=== PATIENT | male | born 1965 | race Caucasian/White ===

== ENCOUNTER → 2017-01-26 | Outpatient (CLI) | payer BC ==
--- NOTE | 2017-01-26 15:32 | XR ---
Left knee HISTORY: Left knee pain 3 views of the left knee No comparisons Bone mineralization, joint spaces and alignment are maintained. No evident joint effusion. IMPRESSION: No fracture or dislocation.
--- NOTE | 2017-01-26 15:34 | XR ---
Right foot HISTORY: Swelling, pain, R 52 3 views of the right foot Comparison prior exam 11/15/2015 There is no interval change. Arthropathy change present at the first metatarsophalangeal joint. Align ment and bone mineralization are normal. IMPRESSION: Stable findings. No significant interval change. No acute abnormalities evident.
== END | disposition home or self-care (01) ==
LOC: RADXRMAIN 13:58
PROVIDERS: ATTEND Family Medicine
DX: R52 Pain, unspecified (principal)

== ENCOUNTER → 2018-04-01 | Outpatient (CLI) | payer BC ==
--- NOTE | 2018-04-01 18:49 | MR ---
EXAMINATION TYPE: MR lumbar spine wo con DATE OF EXAM: 04/01/2018 COMPARISON: X-ray 09/03/2015 HISTORY: Spinal Stenosis TECHNIQUE: T1 and T2 axial and sagittal images of the lumbar spine are submitted. FINDINGS: There is no abnormal signal seen within the visualized spinal cord or paraspinal soft tissu es. Tiny simple appearing left renal cyst measuring 5 mm or less. At L1-2 there is hypertrophic change of the facets. No disc herniation, canal stenosis or foraminal e ncroachment. At L2-3 there is facet arthropathy and ligamentum flavum hypertrophy. Mild circumferential disc bulgi ng. No canal stenosis or foraminal encroachment At L3-4 there is facet arthropathy. There is broad-based disc bulging with ligamentum flavum hypertro phy. Borderline to mild central stenosis. Mild bilateral foraminal encroachment. Lateral recess steno sis noted bilaterally. At L4-5 there is broad-based central disc protrusion with advanced facet arthropathy and ligamentum f lavum hypertrophy. There is mild bilateral foraminal encroachment and moderate central stenosis. At L5-S1 there is hypertrophic change facets. No disc herniation or canal stenosis. No foraminal encr oachment IMPRESSION: 1. Broad-based central disc protrusion with advanced facet arthropathy and ligamentum flavum hypertro phy L4-L5 results in moderate canal stenosis and bilateral foraminal encroachment. 2. Borderline to mild canal stenosis L3-L4 due to disc bulging and hypertrophic changes. Mild bilater al foraminal encroachment.
== END | disposition home or self-care (01) ==
LOC: RADMRIMAIN 17:19
PROVIDERS: ATTEND Emergency Medicine
DX: M48.061 Spinal stenosis, lumbar region without neurogenic claudication (principal); M51.26 Other intervertebral disc displacement, lumbar region; M46.96 Unspecified inflammatory spondylopathy, lumbar region
CPT/HCPCS: 72148

== ENCOUNTER → 2020-04-19 | Outpatient (CLI) | payer BC | END | disposition home or self-care (01) | LOC: LABWHC1 13:01 | PROVIDERS: ATTEND Emergency Medicine | DX: Z20.828 Contact with and (suspected) exposure to other viral communicable diseases (principal) | CPT/HCPCS: U0003; C9803 ==

== ENCOUNTER 2021-01-26 15:17 | Emergency (ER) | payer BC ==
[2021-01-26] MEDS ORDERED: KETOROLAC 15 MG/ML 1 ML VIAL IM STA (15:37)
--- NOTE | 2021-01-26 16:06 | ED ---
Lower Extremity Injury HPI - General Chief Complaint: Extremity Injury, Lower Stated Complaint: Lt Ankle Injury Time Seen by Provider: 01/26/21 15:32 Source: patient Mode of arrival: ambulatory Limitations: no limitations - History of Present Illness Initial Comments: 55 year-old male patient presents to the emergency department for evaluation of left ankle pain. Playing softball yesterday went to run and felt a popping sensation in his left foot just below his lateral ankle. He states that it caused immediate pain. He proceeded to play 4 more games. Today the area remains painful and is swollen. Does take norco, states its not helping much with the pain. Denies numbness or tingling to the foot. Denies any fall or other injury. Denies history of injury to this foot or ankle. Denies any other concerns. - Related Data Home Medications Medication Instructions Recorded Confirmed HYDROcodone/APAP 10-325MG [Lanse 1 tab PO TID PRN 10/30/15 01/26/21 10-325] Ibuprofen [Motrin] 800 mg PO TID PRN 01/26/21 01/26/21 Allergies Allergy/AdvReac Type Severity Reaction Status Date / Time No Known Allergies Allergy Verified 01/26/21 16:09 Review of Systems ROS Statement: Those systems with pertinent positive or pertinent negative responses have been documented in the HPI. ROS Other: All systems not noted in ROS Statement are negative. Past Medical History Additional Past Medical History / Comment(s): back pain History of Any Multi-Drug Resistant Organisms: None Reported Past Surgical History: Joint Replacement, Orthopedic Surgery Past Psychological History: No Psychological Hx Reported Smoking Status: Never smoker Past Alcohol Use History: None Reported Past Drug Use History: None Reported General Exam Limitations: no limitations General appearance: alert, in no apparent distress, other (Physical well- developed, well-nourished adult male patient in no acute distress. Vital signs upon presentation are temperature 98.7F, pulse 80, respirations 16, blood pressure 150/88, pulse ox 96% on room air.) Respiratory exam: Present: normal lung sounds bilaterally. Absent: respiratory distress, wheezes, rales, rhonchi, stridor Cardiovascular Exam: Present: regular rate, normal rhythm, normal heart sounds. Absent: systolic murmur, diastolic murmur, rubs, gallop, clicks Extremities exam: Present: full ROM, tenderness (Left lateral foot over the proximal fourth and fifth metatarsal), normal capillary refill, other (Soft tissue swelling noted beneath the left lateral malleolus and near the proximal fourth and fifth metatarsal dorsally. Skin is pink, warm, dry. Cap refill less than 3 seconds. Pedal and posttibial pulse 2+.). Absent: pedal edema, joint swelling, calf tenderness Neurological exam: Present: alert, oriented X3, CN II-XII intact Psychiatric exam: Present: normal affect, normal mood Skin exam: Present: warm, dry, intact, normal color. Absent: rash Course Vital Signs 01/26/21 01/26/21 15:21 17:10 Temperature 98.7 F 97.8 F Pulse Rate 80 72 Respiratory 16 18 Rate Blood Pressure 150/88 132/78 O2 Sat by Pulse 96 97 Oximetry Medical Decision Making - Medical Decision Making 55 year-old male patient presented to the emergency department for evaluation of left ankle and foot pain that started after injury yesterday. Physical examination reveals left dorsal foot swelling over the proximal fourth and fifth metatarsal. Neurovascular status is intact. X-ray showed no evidence for acute fracture. I did discuss sprain versus ligamentous tear as cause for his symptoms. He is placed in ankle stirrup splint. Instructed to rest, ice, elevate. Follow-up with primary care physician for recheck in one week if symptoms persist. Return parameters were discussed in detail. He verbalizes understanding and agrees with this plan. Case discussed with my attending Dr. Vergara. - Radiology Data Radiology results: report reviewed, image reviewed X-ray of the left ankle and foot were obtained. Report was reviewed in its entirety. Impression by Dr. Rose shows no acute fracture or dislocation of the left foot or ankle. Disposition Clinical Impression: Sprain of left foot, Sprain of left ankle Disposition: HOME SELF-CARE Condition: Good Instructions (If sedation given, give patient instructions): Ankle Sprain (ED), Foot Sprain (ED) Additional Instructions: Rest, ice, elevate the foot. Take tylenol and motrin for pain control. Follow up with the primary care physician for recheck in one week. Have repeat xrays performed if symptoms are not improved. Return for any new, worsening, or concerning symptoms. Is patient prescribed a controlled substance at d/c from ED?: No Referrals: Ben Arteaga MD [Primary Care Provider] - 1-2 days Time of Disposition: 16:59
--- NOTE | 2021-01-26 16:10 | XR ---
EXAMINATION TYPE: XR ankle complete LT, XR foot complete LT DATE OF EXAM: 01/26/2021 COMPARISON: NONE HISTORY: Left foot and ankle pain after twisting injury TECHNIQUE: Frontal, lateral, and oblique views of the ankle were obtained. Frontal, lateral, and obli que views of the left foot were obtained. FINDINGS: Ankle: No acute fracture or dislocation. No significant soft tissue swelling. Mild degenerative changes of t he tibiotalar joint; otherwise, the joint spaces are maintained. Ankle mortise appears congruent. Foot: No acute fracture or dislocation. Bipartite medial sesamoid bone. No significant soft tissue swelling . Joint spaces are maintained. IMPRESSION: No acute fracture or dislocation of the left foot or ankle.
[2021-01-26 17:20] VITALS: BP 132/78; PULSE 72; RESP 18; TEMP 97.8
== END 2021-01-26 17:10 | disposition home or self-care (01) ==
LOC: EC 15:17
DX: S93.602A Unspecified sprain of left foot, initial encounter (principal); S93.402A Sprain of unspecified ligament of left ankle, initial encounter; Z79.1 Long term (current) use of non-steroidal anti-inflammatories (NSAID); X50.1XXA Overexertion from prolonged static or awkward postures, initial encounter; Y93.64 Activity, baseball
CPT/HCPCS: 73610; 73630; 29515; 96372; 99283; L4350; J1885

== ENCOUNTER → 2021-04-10 | Outpatient (CLI) | payer BC | END | disposition home or self-care (01) | LOC: LABWHC1 16:40 | PROVIDERS: ATTEND Family Medicine | DX: U07.1 COVID-19 (principal) | CPT/HCPCS: U0003; C9803 ==

== ENCOUNTER → 2023-02-16 | Outpatient (CLI) | payer BC ==
--- NOTE | 2023-02-16 17:04 | CA ---
Stress Echo Report Neville Saleh Age: 57 Gender: M : 1965 Exam Date: 02/16/2023 10:09 Exam Location: [facility] [facility] Ht (in): 70 Wt (lb): 227 Ordering Physician: Ben Arteaga MD Referring Physician: Ben Arteaga MD Slab Installer: Mary Holland RDCS Technologist Procedure CPT: Indication: I44.7 Left BBB ICD-9 Codes: Rhythm: Patient History: Cardiac Medications: LISINOPRIL,,,,,, NORCO,,,,,, LEXAPRO,,,,,, FISH OIL,,,,,, IBUPROFEN,,,,,, MULTIVITAMIN,,,,, Medications in past 24 hours: Contrast: Lumason Stress Results Protocol: Yannick Total dose(mL): 5 Exercise Duration (min:sec): 10:[address] Depression (mm): Angina Score: Ambrosio Score: METS: 12.1 Resting HR: 64 Resting BP: 122 / 73 Peak HR: 145 Peak BP: 151 / 62 Max Predicted HR: 165 88 % Max Predicted HR Target HR: 140 Double Product: [id number] Stress Summary: The patient's target heart rate was achieved BP Response: Normal Reason for Termination: MAX EXERTION/TARGET HR Cardiac Symptoms: NO SYMPTOMS ECG Analysis Resting ECG: Stress ECG: Arrhythmia: Echo Analysis Resting Echo: Peak Echo Analysis: MEASUREMENTS (Male/Female) Normal Values 2D ECHO LV Diastolic Diameter PLAX 4.2 cm 4.2 - 5.9 / 3.9 - 5.3 cm LV Systolic Diameter PLAX 3.1 cm IVS Diastolic Thickness 1.2 cm 0.6 - 1.0 / 0.6 - 0.9 cm LVPW Diastolic Thickness 1.2 cm 0.6 - 1.0 / 0.6 - 0.9 cm LV Relative Wall Thickness 0.6 CONCLUSIONS Exercise stress echo Excellent exercise capacity and a most protocol for 10 minutes 30 seconds Underlying left bundle branch block morphology Normal heart rate and blood pressure response No ECG abnormalities consistent with ischemia No echocardiographic evidence for ischemia Dr. Raleigh Bradford MD (Electronically Signed) Final Date: 16 February 2023 17:03
== END | disposition home or self-care (01) ==
LOC: RADNMMAIN 09:42
PROVIDERS: ATTEND Family Medicine
DX: I44.7 Left bundle-branch block, unspecified (principal)
CPT/HCPCS: 93351; Q9950